=== PATIENT | female | born 1940 | race Two or more races ===

== ENCOUNTER 2017-03-04 09:09 | Inpatient (IN) | payer OTHER ==
[~2017-03-04] VITALS: Ht 170.2 cm; Wt 77.1 kg
[2017-03-04] VITALS (9 sets, daily range): BP systolic 103–127; BP diastolic 57–77
[~2017-03-04 09:09] MED LIST: ceFAZolin 1gm in D5W 55ml IVP ONE; celeBREX 200mg Cap **SURGERY PATIENTS ONLY ORAL ONE; oxyCONTIN 20mg tab ORAL ONE
[2017-03-04] MEDS ORDERED: VITAMIN B-12250 MCG PO (11:05)
[2017-03-04] MEDS ORDERED: LEVOTHYROXINE88 MCG ORAL (11:05)
[2017-03-04] MEDS ORDERED: FERROUS SULFAT325 MG ORAL (11:06)
[2017-03-04] MEDS ORDERED: MAGNESIUM250 M2 PO (11:06)
[2017-03-04] MEDS ORDERED: VITAMIN D400 INTLU ORAL (11:06)
[2017-03-04] MEDS ORDERED: Bupivacaine 0.5% Inj 30 ml vial INJ ONE (13:32)
[2017-03-04] MEDS ORDERED: Morphine Sulfate PF 10 ML ONE ×2 (13:32→13:47)
[2017-03-04] MEDS ORDERED: Ropivacaine 5mg/ml Vial 20ml INJ ONE (13:32)
[2017-03-04] MEDS ORDERED: Bacitracin 50000 Units Vial ONE (13:35)
[2017-03-04] MEDS ORDERED: Bupivacaine w/Epi 0.5% 30ml Vial INJ ONE ×2 (13:35→15:25)
[2017-03-04] MEDS ORDERED: Ketorolac 30mg Inj ONE (13:35)
[2017-03-04] MEDS ORDERED: Kenalog-40 1ml Vial ONE (13:35)
[2017-03-04] MEDS ORDERED: Tranexamic Acid 500 MG in NS 55 ML IVPB ONE (13:45)
--- NOTE | 2017-03-04 13:46 | Pre-Procedure Note/Attestation ---
Pre-Procedure Note/Attestation Complete Prior to Procedure Planned Procedure: left Procedure Narrative: ercb relaease Indications for Procedure Pre-Operative Diagnosis: left elbow lateral epiconditis Attestation I attest that I discussed the nature of the procedure; its benefits; risks and complications; and alternatives (and the risks and benefits of such alternatives ), prior to the procedure, with the patient (or the patient's legal sales training representative). I attest that, if there was a reasonable possibility of needing a blood transfusion, the patient (or the patient's legal sales training representative) was given the [facility] standardized written summary, pursuant to the [place] Blood Safety Act ([place] Health and Safety Code # 1645, as amended). I attest that I re-evaluated the patient just prior to the surgery and that there has been no change in the patient's H&P, except as documented below: CUATE CORRAL Mar 04, 2017 13:46
--- NOTE | 2017-03-04 13:46 | Operative Note - PDOC ---
Operative Note Operative Note Pre-op Diagnosis: left hip oa Procedure: left chau Post-op Diagnosis: same as pre-op plus Operative Findings: consistent w/pre-op dx studies Anesthesia: regional, MAC Specimen: yes Complications: none Condition: stable Estimated Blood Loss: minimal Implant(s) used?: Yes CUATE CORRAL Mar 04, 2017 13:46
[2017-03-04] MEDS ORDERED: Lidocaine 1% MPF 10mg/ml 5ml ONE (14:00)
[2017-03-04] MEDS ORDERED: NS Irrig 1000ml ONE (14:00)
[2017-03-04] MEDS ORDERED: Alfentanil 2ml Inj ONE (14:00)
[2017-03-04] MEDS ORDERED: Propofol 10mg/ml 20ml IV ONE (14:00)
[2017-03-04] MEDS ORDERED: Sterile Water Irrig 1000ml IRRIG ONE (14:00)
[2017-03-04] MEDS ORDERED: LR 1000ml ONE (14:00)
[2017-03-04] MEDS ORDERED: Sterile Water For Irrig 2000ml IRRIG ONE (14:00)
[2017-03-04] MEDS ORDERED: Midazolam 2mg/2ml Inj ONE (14:00)
[2017-03-04] MEDS ORDERED: Tranexamic Acid 1,000 MG in NS 110 ML IVPB ONE (14:30)
[2017-03-04] MEDS ORDERED: LR 1000ml 1,000 ML IVLG SCH (14:46)
--- NOTE | 2017-03-04 14:52 | Anethesia Preoperative Eval ---
Anesthesia Pre-op PMH/ROS General Date of Evaluation: Mar 04, 2017 Time of Evaluation: 13:51 Anesthesiologist: David ASA Score: ASA 3 Mallampati Score Class I : Soft palate, uvula, fauces, pillars visible Class II: Soft palate, uvula, fauces visible Class III: Soft palate, base of uvula visible Class IV: Only hard plate visible Mallampati Classification: Class II Surgeon: Billy Diagnosis: L Hip Pain Surgical Procedure: L Hip Total Arthroplasty Anesthesia History: none Family History: no anesthesia problems Allergies: Coded Allergies: BRASWELL (Verified Allergy, Intermediate, 03/04/17) eyes and mouth swell Medications: see eMAR Past Medical History Cardiovascular: Reports: HTN Neurologic/Psychiatric: Reports: depression/anxiety Endocrine: Reports: hypothyroidism Anesthesia Pre-op Phys. Exam Physician Exam Last Vital Signs Date Time Temp Pulse Resp B/P Pulse Ox O2 Delivery O2 Flow Rate FiO2 03/04/17 10:58 97.4 66 18 115/77 100 Room Air Constitutional: NAD Neurologic: CN 2-12 intact Cardiovascular: RRR Respiratory: CTA Gastrointestinal: S/NT/ND Airway Exam Mallampati Score: Class II MO: limited ROM: limited Teeth: intact Anesthesia Pre-op A/P Risk Assessment & Plan Assessment: ASA 3 Plan: GA, Spinal, L Lumbar Plexus Block Status Change Before Surgery: No Pre-Antibiotics Dru Grams Ancef IV Given Within 1 Hr of Incision: Yes Time Given: 14:11 Riaz Hernandez MD Mar 04, 2017 14:52
--- NOTE | 2017-03-04 14:53 | Immediate Post-Op Evaluation ---
Immediate Post-Op Evalulation Immediate Post-Op Evalulation Procedure: L Hip Toatal Arthroplasty Date of Evaluation: Mar 04, 2017 Time of Evaluation: 16:05 IV Fluids: 1200 LR Blood Products: 0 Estimated Blood Loss: 75 Urinary Output: 200 Blood Pressure Systolic: 127 Blood Pressure Diastolic: 71 Pulse Rate: 84 Respiratory Rate: 16 O2 Sat by Pulse Oximetry: 100 Temperature (Fahrenheit): 97.4 Pain Score (1-10): 1 Nausea: No Vomiting: No Complications 0 Patient Status: awake, reacts, patent, extubated, none Hydration Status: adequate Dru Grams Ancef IV Given Within 1 Hr of Incision: Yes Time Given: 14:11 Riaz Hernandez MD Mar 04, 2017 14:53
[2017-03-04] MEDS ORDERED: Oxycodone/Acetaminophen 5-325 ORAL PRN (15:00)
[2017-03-04] MEDS ORDERED: Hydromorphone 0.5mg/0.5ml inj IVP PRN (15:00)
[2017-03-04] MEDS ORDERED: fentaNYL 100 mcg/2 mL IV PRN (15:00)
[2017-03-04] MEDS ORDERED: Atropine Inj 1mg/10ml Syr IV PRN (15:00)
[2017-03-04] MEDS ORDERED: Midazolam 2mg/2ml Inj IVP PRN (15:00)
[2017-03-04] MEDS ORDERED: Ketorolac 60mg Inj IV PRN (15:00)
[2017-03-04] MEDS ORDERED: LORazepam Inj 2mg/ml 1ml IV PRN (15:00)
[2017-03-04] MEDS ORDERED: Norco 5mg/325mg tab ORAL PRN ×2 (15:00→18:00)
[2017-03-04] MEDS ORDERED: Metoclopramide 10mg/2ml Inj IVP PRN (15:00)
[2017-03-04] MEDS ORDERED: DiphenhydrAMINE 50mg/ml Inj IVP PRN (15:00)
[2017-03-04] MEDS ORDERED: Meperidine 25mg/0.5ml Inj (FOR RIGORS ONLY) IV PRN (15:00)
[2017-03-04] MEDS ORDERED: Ketorolac 30mg Inj IV PRN (15:00)
[2017-03-04] MEDS ORDERED: Norco 7.5mg/325mg tab ORAL PRN ×2 (15:00→18:00)
[2017-03-04] MEDS ORDERED: Duramorph PF 10mg/10ml amp EPIDUR ONE (15:27)
--- NOTE | 2017-03-04 17:01 | Diagnostic Imaging Report ---
Indication: PAIN Technique: One view of the pelvis Comparison: None Findings: Single intraoperative AP view of the pelvis demonstrates a left acetabular cup and the femoral broach. Air from the surgical wound is seen in the soft tissues. There is a May catheter Impression: Intraoperative images, as described. No unusual features
[2017-03-04] MEDS ORDERED: Morphine Sulfate 2mg/ml Inj IVP PRN ×2 (18:00)
[2017-03-04] MEDS ORDERED: Milk of Magnesia 30ml Ud ORAL PRN (18:00)
[2017-03-04] MEDS ORDERED: oxyCODONE 5mg IR tab ORAL PRN (18:00)
[2017-03-04] MEDS ORDERED: Morphine Sulfate 4mg/ml Inj IVP PRN (18:00)
[2017-03-04] MEDS: D5 1/2NS w/KCl 20mEq 1,000 ML IV SCH (18:22)
[2017-03-04] MEDS: Docusate 100mg cap ORAL SCH (18:23)
[2017-03-04] MEDS: Pericolace tab ORAL SCH (18:23)
--- NOTE | 2017-03-04 18:24 | Pre-Procedure Note/Attestation ---
Pre-Procedure Note/Attestation Complete Prior to Procedure Planned Procedure: left Procedure Narrative: chau Indications for Procedure Pre-Operative Diagnosis: left hip oa Attestation I attest that I discussed the nature of the procedure; its benefits; risks and complications; and alternatives (and the risks and benefits of such alternatives ), prior to the procedure, with the patient (or the patient's legal route service representative). I attest that, if there was a reasonable possibility of needing a blood transfusion, the patient (or the patient's legal route service representative) was given the [facility] standardized written summary, pursuant to the [place] Blood Safety Act ([place] Health and Safety Code # 1645, as amended). I attest that I re-evaluated the patient just prior to the surgery and that there has been no change in the patient's H&P, except as documented below: CUATE CORRAL Mar 04, 2017 18:24
[2017-03-04] MEDS: ceFAZolin sod 2 GM in D5W 110 ML IV SCH (21:21)
[2017-03-04] MEDS: oxyCONTIN 20mg tab ORAL SCH (21:21)
--- NOTE | 2017-03-05 00:15 | Operative Note - Dictated ---
DATE OF OPERATION: 03/04/2017 PREOPERATIVE DIAGNOSIS: Left hip posttraumatic arthrosis. POSTOPERATIVE DIAGNOSIS: Left hip posttraumatic arthrosis. PROCEDURE: Left total hip arthroplasty. SURGEON: Lucio Cervantes M.D. ANESTHESIA: Spinal. INDICATION FOR PROCEDURE: The patient is a 76-year-old, with progressive left hip pain. She is indicative of operative fixation of left total hip arthroplasty. The risks, limitations, expectations, and complications of the procedure was discussed in detail including leg-length discrepancy, instability, need for future surgery, risk of anesthesia, medical complications, DVT, PE, and mortality risk. DESCRIPTION OF PROCEDURE: An informed consent was obtained. The patient was brought to the operating room and placed under spinal anesthesia. The patient was then carefully placed in the lateral position. Left hip was prepped and draped in a sterile manner. Time-out was performed. Ancef was administered. The posterolateral skin incision was then made. Fascia matias was incised. Piriformis and short external were Teed. Capsule was Teed and tagged with #2 FiberWire. Hip was dislocated and future neck was then made. The anterior and inferior acetabular retractors were placed. Excess labrum was debrided, sequential reaming up to 54 was performed. A 56 acetabular component was placed with a neutral liner. Once that was done, sequential broaching up to size 9 was performed. A 9-0 head-neck combo was selected and placed. Intraoperative imaging showed leg lengths relatively equal. Hip flexed to 120 degrees, 90 degrees flexion, and internal rotation of 60 degrees. Extension and external rotation were stable. Leg lengths clinically felt equal. At this point, the trial components were removed and final implants were impacted into place. The capsule was reapproximated through two holes in the greater trochanter and fascia matias was reapproximated with #1 Vicryl suture. The skin was approximated using #1 Vicryl suture, 2-0 Vicryl suture, and 3-0 Monocryl suture. Steri-Strips and a sterile dressing were applied. The patient was awoken and taken to the recovery room with stable vital signs. ESTIMATED BLOOD LOSS: 50 mL. COMPLICATIONS: None. SPECIMENS: Femoral head. IMPLANTS: Include a [place]a 56 acetabular component size 9 and femoral component with a 0 head neck combo. Lucio Cervantes M.D. DR: BRADY JOB#: [id number] CC:
[2017-03-05 00:20] VITALS: BP 128/69
[2017-03-05 04:43] VITALS: BP 100/60
[2017-03-05] MEDS: D5 1/2NS w/KCl 20mEq 1,000 ML IV SCH ×2 (06:26→20:56)
[2017-03-05] MEDS: ceFAZolin sod 2 GM in D5W 110 ML IV SCH (06:26)
[2017-03-05 07:07] LABS: MEAN CORPUSCULAR HEMOGLOBIN 32.6 PG (27.0-31.0); MEAN CORPUSCULAR HGB CONC 33.7 G/DL (32.0-36.0); MEAN CORPUSCULAR VOLUME 97 FL (80-99); MEAN PLATELET VOLUME 7.2 FL (6.5-10.1); PLATELET COUNT 191 K/UL (150-450); RED BLOOD COUNT 3.99 M/UL (4.20-5.40); RED CELL DISTRIBUTION WIDTH 10.4 % (11.6-14.8)
[2017-03-05 07:38] LABS: ANION GAP 16 (5-15); CALCIUM 9.4 mg/dL (8.6-10.2); CARBON DIOXIDE 23 mEQ/L (20-30); CHLORIDE 103 mEQ/L (98-107); CREATININE 0.9 mg/dL (0.5-0.9); HEMOLYSIS 4; POTASSIUM 4.4 mEQ/L (3.4-4.9); SODIUM 142 mEQ/L (135-145)
[2017-03-05] MEDS: Docusate 100mg cap ORAL SCH ×4 (08:37→17:13)
[2017-03-05] MEDS: oxyCONTIN 20mg tab ORAL SCH ×2 (08:37→20:57)
[2017-03-05] MEDS: Pericolace tab ORAL SCH ×3 (08:37→17:13)
[2017-03-05] MEDS: celeBREX 200mg Cap **SURGERY PATIENTS ONLY ORAL SCH ×2 (08:38→09:00)
[2017-03-05] MEDS: Vitamin B-12 500mcg tab ORAL SCH ×2 (08:38→09:00)
[2017-03-05 08:53] VITALS: BP 92/59
[2017-03-05] MEDS: Vitamin D 1000 IU Tab ORAL SCH (09:00)
--- NOTE | 2017-03-05 09:44 | 48 Hour Post Anesthesia Eval ---
Post Anesthesia Evaluation Procedure: L Hip Toatal Arthroplasty Date of Evaluation: Mar 05, 2017 Time of Evaluation: 08:15 Blood Pressure Systolic: 100 0: 60 Pulse Rate: 73 Respiratory Rate: 18 Temperature (Fahrenheit): 97.1 O2 Sat by Pulse Oximetry: 92 Airway: patent Nausea: No Vomiting: No Pain Intensity: 2 Hydration Status: adequate Cardiopulmonary Status: at baseline Mental Status/LOC: patient returned to baseline Post-Anesthesia Complications: 0 Follow-up care needed: N/A - further care as per primary team DIANE GALVAN M.D. Mar 05, 2017 09:44
[2017-03-05 11:06] VITALS: BP 96/56
--- NOTE | 2017-03-05 11:15 | Diagnostic Imaging Report ---
Indication: Postoperative left hip/pain Technique: XRAY PELVIS 1 VIEW Comparison: Examination from earlier the same day at 1514 hrs. Findings: There is a left hip hemiarthroplasty with operative soft tissue changes. Hardware alignment is satisfactory. There is no perihardware fracture. Impression: Status post left hip arthroplasty.
[2017-03-05 15:43] VITALS: BP 105/75
[2017-03-05 20:00] VITALS: BP 98/56
[2017-03-06 04:00] VITALS: BP_SYST 111; BP_SYST 148; BP_DIAS 63; BP_DIAS 75
[2017-03-06 07:14] LABS: BASOPHILS % (AUTO) 0.3 % (0.0-2.0); LYMPHOCYTES % (AUTO) 7.4 % (20.0-45.0); MEAN CORPUSCULAR HEMOGLOBIN 33.2 PG (27.0-31.0); MEAN CORPUSCULAR HGB CONC 34.5 G/DL (32.0-36.0); MEAN CORPUSCULAR VOLUME 96 FL (80-99); MEAN PLATELET VOLUME 8.8 FL (6.5-10.1); MONOCYTES % (AUTO) 8.5 % (1.0-10.0); NEUTROPHILS % (AUTO) 83.7 % (45.0-75.0); PLATELET COUNT 168 K/UL (150-450); RED BLOOD COUNT 3.36 M/UL (4.20-5.40); RED CELL DISTRIBUTION WIDTH 10.6 % (11.6-14.8); WHITE BLOOD COUNT 10.4 K/UL (4.8-10.8)
[2017-03-06 08:00] VITALS: BP 106/64
[2017-03-06] MEDS: oxyCONTIN 20mg tab ORAL SCH (08:26)
[2017-03-06] MEDS: Docusate 100mg cap ORAL SCH (08:26)
[2017-03-06] MEDS: celeBREX 200mg Cap **SURGERY PATIENTS ONLY ORAL SCH (08:26)
[2017-03-06] MEDS: Vitamin B-12 500mcg tab ORAL SCH (08:26)
[2017-03-06] MEDS: Pericolace tab ORAL SCH (08:26)
[2017-03-06] MEDS: Vitamin D 1000 IU Tab ORAL SCH (08:33)
[2017-03-06] MEDS ORDERED: PERCOCET 5-3251 EACH ORAL (09:58)
[2017-03-06] MEDS ORDERED: ASPIRIN325 MG ORAL (10:00)
--- NOTE | 2017-03-07 08:38 | Diagnostic Imaging Report ---
Indication: Cough Technique: One view of the chest Comparison: none Findings: Lungs and pleural spaces are clear. The heart size is normal. It is tortuous and ectatic. The upper mediastinum is unremarkable Impression: No acute process
--- NOTE | 2017-03-07 12:55 | Discharge Summary ---
Discharge Summary Hospital Course Date of Admission Mar 04, 2017 at 09:09 Date of Discharge Mar 06, 2017 at 12:33 Admitting Diagnosis HPI Anastasiya Delgado is a 76 year old female who was admitted on Mar 04, 2017 at 09:09 for Lt Hip Osteoarthritis Procedures s/p 03/04 Left total hip arthroplasty by dr Cervantes . Hospital Course s/p surgery course of recovery uneventful pain management hydration with IV fluids, dc when tolerated diet PT eval and Rx , able to ambulate neurovascular intact incision clean DVT prophylaxis IS when in bed voided freely tolerated diet bowel regimen iron supplement daily, continue upon dc ( mild anemia) continue Levothyroxine stable for dc home fup as outpatient with surgery FINAL DIAGNOSIS Left hip posttraumatic arthrosis. s/p Left total hip arthroplasty postoperative pain hypothyroidism mild anemia Discharge Medications Continued Medications: Aspirin* (Aspirin*) 325 Mg Tablet 325 MG ORAL BID for 42 Days, #84 TAB Cyanocobalamin (Vitamin B-12) (Vitamin B-12) 250 Mcg Tablet 500 MCG PO DAILY, TAB Ferrous Sulfate* (Ferrous Sulfate*) 325 Mg Tablet 325 MG ORAL DAILY, #30 TAB 0 Refills Levothyroxine Sodium* (Levothyroxine Sodium*) 88 Mcg Tablet 88 MCG ORAL DAILY, TAB Take in the morning on an empty stomach, at least 30 minutes before food. Oxycodone/Acetaminophen 5-325* (Percocet 5-325 Mg Tablet*) 1 Each Tablet 1 TAB ORAL Q6H PRN for For Pain, #60 TAB 0 Refills Vitamin D (Vitamin D3) 400 Unit Tablet 5000 UNITS ORAL DAILY, TAB Discharge Condition Upon Discharge: stable Discharge Disposition Patient was discharged to Home (01) Discharge Diagnoses: Chandana (Sydnie)Ariadna NP Mar 07, 2017 12:55
--- NOTE | 2017-03-09 08:14 | Cardiology Report ---
APPROVED REPORT EKG Measurement Heart [id number] Normal sinus rhythm Normal ECG
== END 2017-03-06 12:33 | disposition home or self-care (01) | DRG 470 ==
LOC: SDSOVERFLO 09:09 → 3E 17:26
PROC: 0SRB0JA Replacement of Left Hip Joint with Synthetic Substitute, Uncemented, Open Approach (ICD-10-PCS; principal; 2017-03-04 15:30)
DX: M16.51 Unilateral post-traumatic osteoarthritis, right hip (principal); E03.9 Hypothyroidism, unspecified; G47.00 Insomnia, unspecified; H53.9 Unspecified visual disturbance
CPT/HCPCS: 36415; 71010; 72170; 80048; 85025; 86850; 86900; 86901; 87081; 93005; 94003; 94150; C9399; J2250; J2405; J3490